=== PATIENT | female | born 1985 | race Caucasian/White ===

== ENCOUNTER 2016-11-28 11:56 | Emergency (ER) | payer SELFPAY ==
[~2016-11-28 11:56] MED LIST: BACLOFEN20 MG PO; MIRENA IUD; PROZAC40 MG PO; TRAZ100 PO; TRILEP300 PO
== END 2016-11-28 14:42 | disposition home or self-care (01) ==
LOC: ER 11:56
PROC: 0H9GXZZ Drainage of Left Hand Skin, External Approach (ICD-10-PCS; principal; 2016-11-28)
DX: L02.512 Cutaneous abscess of left hand (principal); F31.9 Bipolar disorder, unspecified; Z86.14 Personal history of Methicillin resistant Staphylococcus aureus infection; Z79.899 Other long term (current) drug therapy
CPT/HCPCS: 87070; 87205; 99282